=== PATIENT | male | born 1955 | race Caucasian/White ===

== ENCOUNTER 2016-08-17 15:44 | Outpatient (CLI) | payer OTHER ==
[~2016-08-17] VITALS: Ht 172.7 cm; Wt 74.1 kg
--- NOTE | 2016-08-17 15:57 | PN ---
Date/Time of Note Date/Time of Note DATE: 08/17/16 TIME: 15:57 Outpatient Progress Note Chief Complaint Dizziness/hypertension/hyperlipidemia/diabetes/A. fib/CVA HPI Dizziness/patient is slight dizziness, no lightheadedness, no syncope, patient was recently hospitalized for syncopal episode, no impaired vision, patient's dizziness mostly in the morning, or taking after that for many according to the patient, and patient was only taking 500 metformin twice a day before hospitalization, now he feels his dizziness is because of metformin is taking 1000 mg twice a day, patient blood pressure stable at present, hypertension/patient has hypertension, no headache, off and on dizziness, no local focal weakness, no impaired vision, no blood in the urine, Hyperlipidemia/no xanthoma, on medication, side effect, Diabetes/no pleuritic 70 hyperglycemia, gastroparesis, A. fib/no chest pain, no palpitation patient was recently hospitalized for syncopal episode, no history of any seizure, CVA/patient was recently admitted with a syncopal episode, no history of seizure disorder, no local focal weakness, Review of Systems Const: No Fever, no chills, no Wt. loss, no Fatigue, normal appetite, no diaphoresis. Eyes: No pain, no discharge, no redness, no visual change, no foreign body. ENT: No pain, no bleeding, no congestion, no sore throat, no dysphagia, no discharge or rhinitis. Lymph: No adenopathy, no tender nodes, no lymphedema. Resp: No SOB, no cough, no sputum, no wheezing, no chest pain. CV: No chest pain, no palpitaions, no COLIN, no PND, no edema. GI: Normal appetite, no pain, no nausea, no vomiting, no diarrhea, no blood, no constipation. : No frequency, no urgency, no dysuria, no hematuria, no flank pain, no discharge, no bleeding. Musc: No bone/joint pain, no back pain, no neck pain, no knee pain, no restricted ROM. Skin: No rash, no skin lesions, no erythema, no laceration, no bruising, no pruritus. Neuro: No VO, off and on dizziness, recently syncope episode and patient was recently hospitalized,, no seizure, no focal-weakness. Endo: No polyuria, no polydypsia, no dry-skin, no temp-intolerance. Psych: No hallucinations, no depression, no anxiety, no suicidal ideation. Ext: No edema, no pain, no ulcer, no weakness. Physical Exam General Appearance: A 61 year-old male who appears well-developed, well- nourished, in no acute distress. HEENT: Head normocephalic, atraumatic. Pupils equal, round, reactive to light and accommodate. Sclerae are no jaundice. Nasal turbinates pink without erythema or nasal discharge. Mucous membranes pink and moist without lesions. Oropharynx clear without any exudate or discharge. NECK: Supple. Trachea midline, No thyromegaly, No cervical lymphadenopathy, No mass, No carotid bruits, No JVD, Carotid pulses 2+ bilaterally. PULMONARY: Clear to auscultaion bilaterally, No retractions, Chest expansion symmetric bilaterally, no rales, no ronchi, no dulness on percussion. CARDIAC: Normal SI and S2, iRegular rate and rythm, no murmur, gallop, or rub. GASTROINTESTINAL: Abdomen is soft, non-tender, Non Rigid, No distention, Positive bowel sounds x4 quadrants, Liver normal. SKIN: Warm, dry, no rash, no bruise, no echmosis. EXTREMITIES: Bilateral lower extremities normal, no edema, no phlabitus, pulse palpable, no contracture. MUSCULOSKELETAL: Spine Normal, Non-tender, Normal range of motion, No swelling, no deformity, no clubbing, or cyanosis, the patient has no edema to bilateral lower extremities, dorsalis pedis pulses palpable bilaterally. NEUROLOGIC: The patient is awake, alert, oriented, responding to yes/no questions appropriately, moving all extremities, cranial nerve intact, normal strenght, normal power, normal coordination, normal gait. Allergies Coded Allergies: Penicillins (Verified Allergy, Unknown, 08/17/16) PMH Syncopal episode/hypertension/dizziness/hyperlipidemia/diabetes/A. fib/CVA Cardiac catheterization, Social Hx No smoking or drinking no drugs, Family Hx Noncontributory Assessment/Plan Impression Dizziness/hypertension/hyperlipidemia/diabetes/A. fib/CVA Plan Patient was taking Glucophage 500 mg twice a day, and according to him the blood sugar was okay at that time, patient was not taking Glucophage 1000 mg twice a day as prescribed because patient felt he had dizziness, now patient is taking Glucophage thousand gram twice a day, and he feels that dizziness is because of Glucophage, explained to the patient, as nothing to do with it, Patient is eating whatever he is cooking, no calorie count, patient has no idea about calorie count, and patient has not been doing any exercise, patient education done in [place], patient may need repeated education from the primary care physician, Patient will be provided 1500 ADA diet. 4, Patient advised to bring all the blood sugar before eating, before meals and at bedtime, and we will evaluate, or primary care physician can evaluated, At present patient blood pressure is stable, and dizziness is not as bad, so we will just monitor closely, Patient encouraged to see primary care physician soon, patient also advised to increase exercise, patient has not been doing any activity, Medications Home Meds Reported Medications Metformin Hcl* (Metformin Hcl*) 1,000 Mg Tablet, 1000 MG PO WITH BREAKFAST DINNE , #60 TAB 08/17/16 Isosorbide Mononitrate* (Isosorbide Mononitrate*) 30 Mg Tab.er.24h, 30 MG PO BID , TAB 08/17/16 Glipizide* (Glipizide*) 5 Mg Tablet, 5 MG PO BID, TAB 08/17/16 Cholecalciferol (Vitamin D3) (VITAMIN D-3) 2,000 Unit Capsule, 1000 UNIT PO, CAP 08/17/16 Apixaban* (Eliquis*) 5 Mg Tablet, 5 MG PO BID, TAB 08/17/16 Benazepril Hcl* (Benazepril Hcl*) 40 Mg Tablet, 40 MG PO DAILY, #30 TAB 08/17/16 Amlodipine Besylate* (Amlodipine Besylate*) 10 Mg Tablet, 10 MG PO DAILY, #30 TAB 08/17/16 Carvedilol* (Carvedilol*) 6.25 Mg Tablet, 6.25 MG PO BID, #60 TAB 08/17/16 Atorvastatin Calcium* (Atorvastatin Calcium*) 20 Mg Tablet, 20 MG PO QHS, #30 TAB 08/17/16 KENDALL PINTO MD Aug 17, 2016 15:57
[2016-08-17] MEDS ORDERED: APIX5TAB PO (16:01)
[2016-08-17] MEDS ORDERED: CARV6.2579 PO (16:01)
[2016-08-17] MEDS ORDERED: AMLO-147 PO (16:01)
[2016-08-17] MEDS ORDERED: ISOS30TA5 PO (16:01)
[2016-08-17] MEDS ORDERED: BENA40TA41 PO (16:01)
[2016-08-17] MEDS ORDERED: GLIP5TAB13 PO (16:01)
[2016-08-17] MEDS ORDERED: ATOR20TA38 PO (16:01)
[2016-08-17] MEDS ORDERED: CHOL20003 PO (16:01)
[2016-08-17] MEDS ORDERED: METF1000 PO (16:01)
[2016-08-17 16:02] VITALS: BP 128/72; PULSE 71; RESP 16; Ht 172.7 cm; Wt 74.1 kg
== END 2016-08-17 16:44 | disposition home or self-care (01) ==
LOC: DCC 15:44
PROVIDERS: ATTEND Internal Medicine
DX: R42 Dizziness and giddiness (principal); I10 Essential (primary) hypertension; E78.5 Hyperlipidemia, unspecified; E11.9 Type 2 diabetes mellitus without complications; I48.91 Unspecified atrial fibrillation; I63.9 Cerebral infarction, unspecified; Z88.0 Allergy status to penicillin
CPT/HCPCS: G0463